=== PATIENT | male | born 2005 | race Caucasian/White ===

== ENCOUNTER 2024-08-07 21:37 | Emergency (ER) | payer OTHER ==
[2024-08-07 21:41] VITALS: BP 122/76; PULSE 80; RESP 17; BMI 26.6
[2024-08-07 21:57] VITALS: TEMP 98.1
[2024-08-07] MEDS ORDERED: IBUPROFEN 600 MG TABLET (FP) PO ONE (22:40)
[2024-08-07] MEDS: IBUPROFEN 600 MG TABLET (FP) PO ONE (22:50)
== END 2024-08-07 22:51 | disposition home or self-care (01) ==
LOC: JERFT 21:37
DX: S93.402A Sprain of unspecified ligament of left ankle, initial encounter (principal); X50.1XXA Overexertion from prolonged static or awkward postures, initial encounter; Y93.67 Activity, basketball
CPT/HCPCS: 73610-TC-LT-FY; 99283-25